=== PATIENT | male | born 1985 | race Caucasian/White ===

== ENCOUNTER 2018-01-17 16:26 | Emergency (ER) | payer OTHER ==
[2018-01-17 16:30] VITALS: BP 132/80; PULSE 82; TEMP 99.3; BMI 38.6
--- NOTE | 2018-01-17 17:28 | PDOC ---
History of Present Illness - History of Present Illness Initial Comments: 01/17/18 17:36 The patient is a 32 year old male, with a significant PMH of who presents to the emergency department with a right finger laceration. Patient states he was using a machine to slice sausages ad accidently sliced the tip of his right thumb. Patients right thumb is actively bleeding. The patient denies chest pain, shortness of breath, headache and dizziness. Denies fever, chills, nausea, vomit, diarrhea and constipation. Denies dysuria, frequency, urgency and hematuria. Allergies: NKA Past surgical history: None reported. Social history: No reported alcohol, drug or cigarette use. <Eileen Estevez - Last Filed: 01/17/18 17:42> - General History Source: Patient Exam Limitations: No Limitations <Maria M Schmitt - Last Filed: 01/18/18 09:23> - General Chief Complaint: Laceration Stated Complaint: i cut my finger Time Seen by Provider: 01/17/18 16:43 Past History <Eileen Estevez - Last Filed: 01/17/18 17:42> - Past Medical History COPD: No - Suicide/Smoking/Psychosocial Hx Smoking History: Never smoked Hx Alcohol Use: No Drug/Substance Use Hx: No Substance Use Type: None <Maria M Schmitt - Last Filed: 01/18/18 09:23> - Past Medical History Allergies/Adverse Reactions: Allergies Allergy/AdvReac Type Severity Reaction Status Date / Time No Known Allergies Allergy Verified 01/17/18 16:27 Home Medications: Ambulatory Orders Cephalexin [Keflex] 500 mg PO Q6H #20 capsule 01/17/18 Acetaminophen W/ Codeine #3 [Tylenol # 3 -] 1 tab PO TID PRN #12 tablet MDD 3 *Physical Exam - Vital Signs Last Vital Signs Temp Pulse Resp BP Pulse Ox 99.3 F 82 16 132/80 99 01/17/18 16:27 01/17/18 16:27 01/17/18 16:27 01/17/18 16:27 01/17/18 16:27 - Physical Exam Comments: 01/17/18 17:41 ADULT PE GENERAL: The patient is in no acute distress. HEAD: Normal with no signs of trauma. EYES: PERRLA, EOMI, sclera anicteric, conjunctiva clear. ENT: Ears normal, nares patent, oropharynx clear without exudates. Moist mucous membranes. NECK: Normal range of motion, supple without lymphadenopathy, JVD, or masses. LUNGS: Breath sounds equal, clear to auscultation bilaterally. No wheezes, and no crackles. HEART:Regular rate and rhythm, normal S1 and S2 without murmur, rub or gallop. ABDOMEN: Soft, nontender, normoactive bowel sounds. No guarding, no rebound. No masses palpable. EXTREMITIES: Normal range of motion, no edema. No clubbing or cyanosis. No erythema, or tenderness. (+) Right hand is warm, 2+ radial and ulnar pulses, sensation intact. (+) Distal amputation of the tuft of the right thumb. Right thumb has FROM. NEUROLOGICAL: Cranial nerves II through XII grossly intact. Normal speech. No focal neurological deficits. MUSCULOSKELETAL: Back non-tender to palpation, no CVA tenderness SKIN: Warm, Dry, normal turgor, no rashes or lesions noted. <Eileen Estevez - Last Filed: 01/17/18 17:42> - Vital Signs Last Vital Signs Temp Pulse Resp BP Pulse Ox 99.3 F 82 16 132/80 99 01/17/18 16:27 01/17/18 16:27 01/17/18 16:27 01/17/18 16:27 01/17/18 16:27 <Maria M Schmitt - Last Filed: 01/18/18 09:23> Medical Decision Making - Medical Decision Making 01/17/18 17:19 Mr Graham is a 32-year-old [id number] male who presents emergency department for evaluation of a laceration to his right thumb. He was slicing sausage on a mandolin. He moved to [employer] and accidentally sliced the tip of his right thumb off. Patient presents emergency Department with bleeding and pain. On examination: Hand is warm, 2+ radial, 2+ ulnar pulse Sensation intact Patient has a distal amputation of the tuft of the right thumb. He has no limitations to movement of the thumb, is able to flex and extend at the IP joint and MCP. Finger tip not available to re attach (for a physiologic dressing Wound irrigated completely Bleeding controlled with surgicel and gauze dressing No bleeding noted now Will give tetanus Will give Keflex Will ask pt to follow up with Hand surgery clinical impression: distal finger tip amputation, initial presentation 01/18/18 09:18 <Maria M Schmitt - Last Filed: 01/18/18 09:23> *DC/Admit/Observation/Transfer - Attestations Scribe Attestion: 01/17/18 17:43 Documentation prepared by Eileen Estevez, acting as medical office professional instructor for Maria M Schmitt MD. <Eileen Estevez - Last Filed: 01/17/18 17:42> - Discharge Dispostion Decision to Admit order: No <Maria M Schmitt - Last Filed: 01/18/18 09:23> Diagnosis at time of Disposition: Traumatic amputation of tip of finger of right hand - Discharge Dispostion Disposition: HOME Condition at time of disposition: Stable - Prescriptions Prescriptions: Cephalexin [Keflex] 500 mg PO Q6H #20 capsule - Referrals Referrals: Shayan Collins MD [Staff Physician] - Sylvester Tracy MD [Staff Physician] - Lam King MD [Staff Physician] - - Patient Instructions Printed Discharge Instructions: DI for Avulsion Laceration (Not Requiring Sutures) Additional Instructions: Mr Graham Thank you for coming into the emergency department today. It will be important for you to follow up with the hand specialist within 2-3 days Please take antibiotics as prescribed. You can remove the outer dressing in 24 hours. You should leave the dressing that is attached to your skin for the next few days DO NOT PULL IT OFF Monitor for signs of an infection - red skin streaking up the thumb, fevers, chills, pus If you notice these things, please return to the ER - Post Discharge Activity Forms/Work/School Notes: Back to Work
[2018-01-17] MEDS ORDERED: DIPHTH,PERTUSS(ACELL),TET 0.5 ML DISP.SYRIN IM ONE (17:29)
== END 2018-01-17 17:47 | disposition home or self-care (01) ==
LOC: FER 16:26
PROC: 3E0234Z Introduction of Serum, Toxoid and Vaccine into Muscle, Percutaneous Approach (ICD-10-PCS; principal; 2018-01-17)
DX: S61.011A Laceration without foreign body of right thumb without damage to nail, initial encounter (principal); W31.89XA Contact with other specified machinery, initial encounter; Y93.G1 Activity, food preparation and clean up; Y92.9 Unspecified place or not applicable
CPT/HCPCS: 90715; 99282-25